=== PATIENT | female | born 1980 | race Caucasian/White ===

== ENCOUNTER → 2017-06-04 | Outpatient (CLI) | payer OTHER ==
[~2017-06-04] MED LIST: CETI-1 PO; LEVO-244 PO; MULT-65 PO
== END ==
LOC: CPRE 09:20
PROVIDERS: ATTEND Obstetrics & Gynecology
DX: N87.9 Dysplasia of cervix uteri, unspecified (principal)

== ENCOUNTER 2017-06-10 06:07 | Observation (INO) | payer OTHER ==
[~2017-06-10] VITALS: Ht 165.1 cm; Wt 90.9 kg
[~2017-06-10 06:07] MED LIST changes: -LEVO-244 PO
[2017-06-10] MEDS ORDERED: POVIDONE IODINE 5% (ANTISEPSIS KIT) 4 APPLICATIONS EACH NARE PRN (06:30)
[2017-06-10] MEDS ORDERED: CHLORHEXIDINE GLUCONATE 2 % 1 PACK (2 CLOTHS) TOPICAL PRN (06:30)
[2017-06-10] MEDS ORDERED: INSULIN HUMAN REGULAR 1,000 UNITS/10 ML VIAL SQ PRN (06:30)
[2017-06-10] MEDS ORDERED: SODIUM CHLORID 0.9% 500 ML IV PRN (06:30)
[2017-06-10] MEDS ORDERED: LACTATED RINGER'S 1000 ML IV PRN (06:30)
[2017-06-10] MEDS ORDERED: METOPROLOL TARTRATE 25 MG TAB PO PRN (06:30)
[2017-06-10] MEDS ORDERED: LEVO-244 PO (06:32)
[2017-06-10] MEDS ORDERED: ONDANSETRON HCL 4 MG/2 ML VIAL IV ONE (06:45)
[2017-06-10] MEDS ORDERED: MIDAZOLAM HCL 2 MG/2 ML VIAL IV ONE ×2 (06:45→12:00)
[2017-06-10] MEDS ORDERED: VASOPRESSIN 20 UNITS/ML VIAL (IVTITR) ONE (07:17)
[2017-06-10] MEDS ORDERED: ACETAMINOPHEN 1000 MG/100 ML 100 ML IV ONE (07:27)
[2017-06-10] MEDS ORDERED: ceFAZolin INJ 1,000 MG VIAL ONE (07:33)
[2017-06-10] MEDS ORDERED: SODIUM CHLORIDE 0.9% INJ 100 ML ONE (07:34)
[2017-06-10] MEDS ORDERED: ceFAZolin 1,000 MG/NS 100 ML IV SCH ×2 (09:00)
[2017-06-10] MEDS ORDERED: DO NOT ADM ANY ANTICOAGULANT DRUGS PRN (09:37)
[2017-06-10] MEDS ORDERED: *MEPERIDINE 25 MG INJ VIAL PERIprocedural Use ONLY ONE (09:55)
[2017-06-10] MEDS ORDERED: MORPHINE SULFATE 30 MG/30 ML PCA ONE (10:03)
[2017-06-10] MEDS ORDERED: ONDANSETRON HCL 4 MG/2 ML VIAL IV PUSH PRN (10:15)
[2017-06-10] MEDS ORDERED: MORPHINE SULFATE 30 MG/30 ML PCA IV SCH (10:15)
[2017-06-10] MEDS ORDERED: diphenhydrAMINE HCL 25 MG CAP PO PRN (10:15)
[2017-06-10] MEDS ORDERED: diphenhydrAMINE HCL 50 MG/ML VIAL IV PUSH PRN (10:15)
[2017-06-10] MEDS ORDERED: NALOXONE HCL 0.4 MG/ML AMP IV PUSH PRN (10:15)
[2017-06-10] MEDS: DEXT 5%-NACL 0.45% 1000 ML INJ 1,000 ML IV SCH ×2 (10:24→21:11)
[2017-06-10] MEDS ORDERED: KETOROLAC TROMETHAMINE 30 MG/ML (IVP) VIAL IV PUSH ONE ×2 (10:30→12:00)
[2017-06-10 11:06] VITALS: BP 102/61; PULSE 54; RESP 20; TEMP 98; O2SAT 96
[2017-06-10] MEDS ORDERED: GLYCOPYRROLATE 1 MG/5 ML SYRINGE IV PUSH ONE (12:00)
[2017-06-10] MEDS ORDERED: PROPOFOL 200 MG/20 ML AMP IV ONE (12:00)
[2017-06-10] MEDS ORDERED: LIDOCAINE HCL 1% PF 5 ML AMPULE OTHER ONE (12:00)
[2017-06-10] MEDS ORDERED: LACTATED RINGER'S 1000 ML INJ 1,000 ML IV ONE (12:00)
[2017-06-10] MEDS ORDERED: DEXAMETHASONE SOD PHOS 4 MG/ML VIAL IV ONE (12:00)
[2017-06-10] MEDS ORDERED: ROCURONIUM INJ 50 MG/5 ML SYRINGE IV PUSH ONE (12:00)
[2017-06-10] MEDS ORDERED: NEOSTIGMINE 3 MG/3 ML SYR IV ONE (12:00)
[2017-06-10 12:48] VITALS: BP 114/76; PULSE 63; RESP 19; TEMP 98.5; O2SAT 97
[2017-06-10] MEDS: PCA - TOTAL MG MORPHINE DELIVERED PER SHIFT SCH ×2 (14:00→21:12)
[2017-06-10 16:00] VITALS: BP 144/84; PULSE 76; RESP 19; TEMP 99; O2SAT 97
[2017-06-10 20:00] VITALS: BP 123/73; PULSE 92; RESP 17; TEMP 97.5; O2SAT 97
[2017-06-11] VITALS: BP 118/73; PULSE 86; RESP 17; TEMP 96.7; O2SAT 97
[2017-06-11] MEDS: DEXT 5%-NACL 0.45% 1000 ML INJ 1,000 ML IV SCH (02:30)
[2017-06-11 04:00] VITALS: BP 127/77; PULSE 71; RESP 17; TEMP 96.6; O2SAT 98
[2017-06-11] MEDS: PCA - TOTAL MG MORPHINE DELIVERED PER SHIFT SCH (06:00)
[2017-06-11 08:00] VITALS: BP 141/89; PULSE 78; RESP 18; TEMP 97.7; O2SAT 98
[2017-06-11] MEDS: oxyCODONE/ACETAMINOPHEN 5 MG/325 MG TAB PO PRN ×2 (08:56→12:43)
[2017-06-11 12:00] VITALS: BP 138/81; PULSE 80; RESP 18; TEMP 97.4; O2SAT 97
[2017-06-11 12:01] LABS: HEMATOCRIT 33.3 % (35.0-46.0); REVIEW FLAG FINAL
--- NOTE | 2017-06-13 07:02 | MP ---
cc: CLARK THOMAS DATE OF SURGERY 06/10/2017 PREOPERATIVE DIAGNOSIS Leiomyomata uteri, menorrhagia. POSTOPERATIVE DIAGNOSIS Leiomyomata uteri, menorrhagia. PROCEDURE Laparoscopic-assisted supracervical hysterectomy. SURGEON MD Celeste ANESTHESIA General. ESTIMATED BLOOD LOSS 400 cc. COMPLICATIONS None. FINDINGS The patient had a uterus that was approximately 8-9 weeks' size. There were multiple intramural and subserosal fibroids noted. They appeared benign. The fallopian tubes and ovaries were unremarkable. The upper abdominal organs were normal as far as could be visualized. DESCRIPTION OF PROCEDURE The patient was brought to the operating room and following general anesthesia was placed in dorsal lithotomy position. Her vagina, abdomen and perineum were prepped and draped. The HUMI catheter was placed in the uterus and a Nava catheter into the bladder. A 1-cm subumbilical skin incision was made, the Veress needle was inserted and 3 liters of CO2 were infused into the abdomen. The Veress needle was then removed and the laparoscope was placed without difficulty. A second and third puncture site were created under direct visualization. The findings were as noted above. The harmonic scalpel was used to clamp, cut and seal the upper broad ligaments and round ligaments. The bladder peritoneum was incised and the bladder was sharply dissected off the anterior cervix. Uterine vessels were skeletonized and then clamped, cut and sealed with the harmonic scalpel. We attempted to transect the cervix with the Linne loop; however, two of these failed so we then used the harmonic scalpel to transect the cervix in the midportion. The stump of the cervix was cauterized as was the endocervical canal. We then removed the fallopian tubes by sealing the mesosalpinx on each side with the harmonic scalpel. Photos of all areas were taken. With no other pathology present and with hemostasis excellent after irrigation, all instruments removed and the CO2 gas was allowed to escape. The incisions were then closed with subcuticular 4-0 Vicryl stitch. The patient was then taken to the recovery room in good condition with all counts correct and clear urine draining in her Nava catheter. MD NAINA Christopher/NICOLA /3:31 PM /6:53 AM
== END 2017-06-11 13:02 | disposition home or self-care (01) ==
LOC: HSDC 06:07 → HOCA 10:52
PROVIDERS: ADMIT Obstetrics & Gynecology; ATTEND Obstetrics & Gynecology
DX: D25.1 Intramural leiomyoma of uterus (principal); N92.0 Excessive and frequent menstruation with regular cycle
CPT/HCPCS: 00840; 58542; 85014; 85018; 86850; 86900; 86901; 88307; 96360; 96361; G0378; J0131; J0690; J1100; J1885; J2175; J2250; J2270; J2405; J2710; J3010; J7120